=== PATIENT | female | born 1990 | race Asian ===

== ENCOUNTER 2024-06-29 20:08 | Emergency (ER) | payer BC ==
[~2024-06-29] VITALS: Ht 157.5 cm; Wt 53.0 kg
[2024-06-29] MEDS: epiNEPHrine 1 mg/ml inj SQ ONE (20:30)
[2024-06-29] MEDS: diphenhydrAMINE 50 mg/ml inj IV ONE (20:35)
[2024-06-29] MEDS: famotidine/PF 10 mg/ml inj IV ONE (20:36)
[2024-06-29] MEDS: normal saline 1000ML IV soln IVB STA (20:46)
[2024-06-29] MEDS: methylPREDNISolone sod succ 125mg/2ml vial IV ONE (21:20)
[2024-06-29] MEDS: triamcinolone acetonide 40mg/ml inj IM ONE (21:20)
[2024-06-29] MEDS ORDERED: EPIN0.3P3 IM (22:01)
[2024-06-29 22:20] VITALS: BP 103/59; PULSE 83; RESP 20; TEMP 98.6; O2SAT 99
== END 2024-06-29 22:24 | disposition home or self-care (01) ==
LOC: ER 20:09
DX: T78.49XA Other allergy, initial encounter (principal); R06.02 Shortness of breath; L50.8 Other urticaria; X58.XXXA Exposure to other specified factors, initial encounter
CPT/HCPCS: 96361; 96372; 96374; 96375; 99285; J0171; J1200; J2919; J3301; J3490; J7030